=== PATIENT | male | born 1960 | race Two or more races ===

== ENCOUNTER → 2018-12-16 | Outpatient (CLI) | payer OTHER ==
[2018-12-16 12:41] LABS: Urine Bacteria NONE SEEN /hpf (None Seen); Urine Blood 1+ /uL (Negative); Urine Mucus FEW (None Seen); Urine Specific Gravity 1.022 (1.001-1.035); Urine WBC 1 /hpf (0 - 3)
[2018-12-16 13:24] LABS: Albumin 3.9 g/dL (3.4-5.0); BUN/Creatinine Ratio 11.2; Calcium 8.9 mg/dL (8.5-10.1)
[2018-12-16 13:29] LABS: Bilirubin, Total 0.6 mg/dL (0.2-1.0); Total Protein 7.6 g/dL (6.4-8.2)
== END | disposition home or self-care (01) ==
LOC: LAB 11:38
PROVIDERS: ATTEND Internal Medicine
DX: Z12.11 Encounter for screening for malignant neoplasm of colon (principal); I10 Essential (primary) hypertension; E78.5 Hyperlipidemia, unspecified
CPT/HCPCS: 36415; 80053; 80061; 81001; 83036; 84153; 84443

== ENCOUNTER → 2019-12-06 | Outpatient (CLI) | payer OTHER | END | disposition home or self-care (01) | LOC: OP 15:30 | PROVIDERS: ATTEND Physician Assistant | DX: L82.1 Other seborrheic keratosis (principal) ==

== ENCOUNTER → 2020-01-05 | Outpatient (CLI) | payer OTHER ==
[2020-01-05 10:41] LABS: BUN/Creatinine Ratio 13.6; Potassium 3.3 mmol/L (3.5-5.1)
== END | disposition home or self-care (01) ==
LOC: LAB 09:52
PROVIDERS: ATTEND Internal Medicine
DX: Z12.11 Encounter for screening for malignant neoplasm of colon (principal); E78.5 Hyperlipidemia, unspecified; I10 Essential (primary) hypertension
CPT/HCPCS: 36415; 80048

== ENCOUNTER → 2020-04-18 | Outpatient (CLI) | payer OTHER ==
[2020-04-18 11:35] LABS: Cholesterol 126 mg/dL (< 200); HDL Cholesterol 32 mg/dL (40-59); LDL Cholesterol 63 mg/dL (< 100); Triglycerides 283 mg/dL (< 150)
== END | disposition home or self-care (01) ==
LOC: LAB 09:52
PROVIDERS: ATTEND Internal Medicine
DX: Z12.11 Encounter for screening for malignant neoplasm of colon (principal); I10 Essential (primary) hypertension
CPT/HCPCS: 36415; 80061; 84153

== ENCOUNTER → 2020-11-19 | Outpatient (CLI) | payer OTHER ==
[2020-11-19 10:55] LABS: BUN/Creatinine Ratio 12.8; Potassium 4.7 mmol/L (3.5-5.1)
[2020-11-19 10:56] LABS: Albumin 3.9 g/dL (3.4-5.0); Calcium 9.1 mg/dL (8.5-10.1)
[2020-11-19 11:00] LABS: Bilirubin, Total 0.8 mg/dL (0.2-1.0); Total Protein 7.9 g/dL (6.4-8.2)
== END | disposition home or self-care (01) ==
LOC: LAB 10:19
PROVIDERS: ATTEND Internal Medicine
DX: I10 Essential (primary) hypertension (principal); E78.5 Hyperlipidemia, unspecified
CPT/HCPCS: 36415; 80053; 80061

== ENCOUNTER → 2021-02-22 | Outpatient (CLI) | payer OTHER ==
[2021-02-22 10:13] LABS: Urine Bacteria NONE SEEN /hpf (None Seen); Urine Blood 1+ /uL (Negative); Urine Mucus FEW (None Seen); Urine Specific Gravity 1.023 (1.001-1.035); Urine WBC <1 /hpf (0 - 3)
[2021-02-22 10:37] LABS: Potassium 3.8 mmol/L (3.5-5.1)
[2021-02-22 10:42] LABS: BUN/Creatinine Ratio 15.8; Magnesium 2.2 mg/dL (1.6-2.6)
== END | disposition home or self-care (01) ==
LOC: LAB 09:27
PROVIDERS: ATTEND Internal Medicine
DX: I12.9 Hypertensive chronic kidney disease with stage 1 through stage 4 chronic kidney disease, or unspecified chronic kidney disease (principal); N18.30 Chronic kidney disease, stage 3 unspecified; E78.5 Hyperlipidemia, unspecified
CPT/HCPCS: 36415; 80048; 81001; 83036; 83735; 84153; 84403

== ENCOUNTER → 2021-05-27 | Outpatient (CLI) | payer OTHER ==
[2021-05-27 12:59] LABS: Urine Bacteria NONE SEEN /hpf (None Seen); Urine Blood TRACE /uL (Negative); Urine Mucus FEW (None Seen); Urine Specific Gravity 1.024 (1.001-1.035); Urine WBC 1 /hpf (0 - 3)
[2021-05-27 13:35] LABS: Potassium 3.7 mmol/L (3.5-5.1)
[2021-05-27 13:45] LABS: Albumin 3.8 g/dL (3.4-5.0); Bilirubin, Total 0.7 mg/dL (0.2-1.0); CRP High Sensitivity 0.31 mg/dL (< 0.3); Calcium 9.1 mg/dL (8.5-10.1); Total Protein 7.4 g/dL (6.4-8.2); Uric Acid 6.5 mg/dL (3.5-7.2)
== END | disposition home or self-care (01) ==
LOC: LAB 12:07
PROVIDERS: ATTEND Internal Medicine
DX: R31.9 Hematuria, unspecified (principal); R10.9 Unspecified abdominal pain
CPT/HCPCS: 36415; 80053; 81001; 84550; 85652; 86141

== ENCOUNTER 2021-07-04 09:40 | Day surgery (SDC) | payer OTHER ==
[~2021-07-04] VITALS: Ht 175.3 cm; Wt 117.9 kg
[~2021-07-04 09:40] MED LIST: ATO40T PO; BACL20TA PO; CLOP75TA70 PO; LIDO5DIS21 TOP; LOSA-39 PO; NITR1SPR TL; OMEG1360 PO; PANT1INJ3 PO; TRIA75TA55 PO
[2021-07-04] MEDS ORDERED: LIDOCAINE VISCOUS 2% 15ML UD ONE (10:41)
[2021-07-04] MEDS ORDERED: diphenhdrAMINE HCL 50 MG/1 ML VL ONE (10:42)
[2021-07-04] MEDS: MIDAZOLAM HCL 5 MG/ML-1ML VIAL ONE ×3 (11:03→11:15)
[2021-07-04] MEDS: fentaNYL CITRATE 100 MCG/2 ML VL ONE ×2 (11:03→11:06)
[2021-07-04] MEDS ORDERED: SIMETHICONE 40 MG/0.6 ML ORAL DROP ONE (11:22)
[2021-07-04 12:35] VITALS: BP 128/70
== END 2021-07-04 12:50 | disposition home or self-care (01) ==
LOC: GI 09:40
PROVIDERS: ATTEND Internal Medicine Gastroenterology
DX: Z12.11 Encounter for screening for malignant neoplasm of colon (principal); D12.0 Benign neoplasm of cecum; K21.00 Gastro-esophageal reflux disease with esophagitis, without bleeding; K57.30 Diverticulosis of large intestine without perforation or abscess without bleeding; K64.8 Other hemorrhoids; I10 Essential (primary) hypertension; Z98.890 Other specified postprocedural states; Z20.822 Contact with and (suspected) exposure to COVID-19; Z79.899 Other long term (current) drug therapy; Z95.5 Presence of coronary angioplasty implant and graft
CPT/HCPCS: 43235; 45380; 88305; J1200; J2250; J3010; U0003; 99152

== ENCOUNTER → 2021-07-30 | Outpatient (CLI) | payer OTHER ==
[2021-07-30 11:41] LABS: INR 1.06 (0.9-1.15); Partial Thromboplastin Time 27.7 sec (23.6-33.0)
[2021-07-30 12:04] LABS: BUN/Creatinine Ratio 13.2; Calcium 9.1 mg/dL (8.5-10.1); Potassium 3.6 mmol/L (3.5-5.1)
== END | disposition home or self-care (01) ==
LOC: LAB 11:09
PROVIDERS: ATTEND Surgery
DX: R22.2 Localized swelling, mass and lump, trunk (principal)
CPT/HCPCS: 36415; 80048; 85610; 85730

== ENCOUNTER → 2022-05-13 | Outpatient (CLI) | payer OTHER ==
[2022-05-13 10:20] LABS: Basophils # (auto) 0 10 ^3/uL (0-0.2); Basophils % (auto) 0.1 % (0.0-2.0); Eosinophils # (auto) 0.1 10 ^3/uL (0-0.8); Eosinophils % (auto) 1.6 % (0.0-7.0); Hematocrit 44.5 % (41.0-53.0); Hemoglobin 14.6 g/dL (13.5-17.5); Lymphocytes # (auto) 1.6 10 ^3/uL (0.4-5.4); Lymphocytes % (auto) 25.5 % (10.0-50.0); Mean Corpuscular Hgb Conc. 32.9 g/dL (32.0-36.0); Monocytes # (auto) 0.4 10 ^3/uL (0-1.3); Monocytes % (auto) 6.7 % (0.0-12.0); Neutrophils # (auto) 4.2 10 ^3/uL (1.6-8.6); Neutrophils % (auto) 66.1 % (37.0-80.0); Nucleated Red Blood Cells % 0.2 %; Red Blood Cells 5.24 10^6/uL (4.5-5.90); Red Cell Distribution Width 14.4 % (11.8-14.3); White Blood Cell 6.4 10^3/uL (4.4-10.8)
[2022-05-13 10:39] LABS: Potassium 3.6 mmol/L (3.5-5.1)
[2022-05-13 10:49] LABS: Albumin 3.7 g/dL (3.4-5.0); BUN/Creatinine Ratio 12.9; Bilirubin, Total 0.5 mg/dL (0.2-1.0); Calcium 9.2 mg/dL (8.5-10.1); Total Protein 7.6 g/dL (6.4-8.2)
== END | disposition home or self-care (01) ==
LOC: LAB 09:00
PROVIDERS: ATTEND Internal Medicine
DX: Z01.818 Encounter for other preprocedural examination (principal); E78.5 Hyperlipidemia, unspecified; R73.9 Hyperglycemia, unspecified
CPT/HCPCS: 36415; 80053; 80061; 84443; 85025

== ENCOUNTER → 2023-05-11 | Outpatient (CLI) | payer OTHER ==
[~2023-05-11] MED LIST changes: -LOSA-39 PO; +LOSA100T58 PO
[2023-05-11 08:39] LABS: Basophils # (auto) 0 10 ^3/uL (0-0.2); Basophils % (auto) 0.2 % (0.0-2.0); Eosinophils # (auto) 0.1 10 ^3/uL (0-0.8); Eosinophils % (auto) 1.7 % (0.0-7.0); Hematocrit 44.4 % (41.0-53.0); Lymphocytes % (auto) 27.5 % (10.0-50.0); Mean Corpuscular Hemoglobin 29.5 pg (28.0-32.0); Mean Corpuscular Hgb Conc. 33.8 g/dL (32.0-36.0); Mean Corpuscular Volume 87.3 fL (80.0-100.0); Monocytes # (auto) 0.5 10 ^3/uL (0-1.3); Monocytes % (auto) 6.7 % (0.0-12.0); Neutrophils # (auto) 4.8 10 ^3/uL (1.6-8.6); Neutrophils % (auto) 63.9 % (37.0-80.0); Nucleated Red Blood Cells % 0.1 %; Red Blood Cells 5.08 10^6/uL (4.5-5.90); Red Cell Distribution Width 14.2 % (11.8-14.3); White Blood Cell 7.4 10^3/uL (4.4-10.8)
[2023-05-11 08:46] LABS: Urine Bacteria NONE SEEN /hpf (None Seen); Urine Blood 1+ /uL (Negative); Urine Mucus FEW (None Seen); Urine Specific Gravity 1.022 (1.001-1.035); Urine WBC <1 /hpf (0 - 3)
[2023-05-11 09:24] LABS: Potassium 4.2 mmol/L (3.5-5.1)
[2023-05-11 09:34] LABS: Albumin 3.7 g/dL (3.4-5.0); BUN/Creatinine Ratio 13.1 (10.0-20.0); Bilirubin, Total 0.6 mg/dL (0.2-1.0); Total Protein 7.1 g/dL (6.4-8.2)
== END | disposition home or self-care (01) ==
LOC: LAB 08:24
PROVIDERS: ATTEND Internal Medicine
DX: Z12.11 Encounter for screening for malignant neoplasm of colon (principal); Z00.00 Encounter for general adult medical examination without abnormal findings; I10 Essential (primary) hypertension; I25.10 Atherosclerotic heart disease of native coronary artery without angina pectoris; E78.5 Hyperlipidemia, unspecified
CPT/HCPCS: 36415; 80053; 80061; 81001; 83036; 84153; 85025

== ENCOUNTER → 2023-12-18 | Outpatient (CLI) | payer OTHER ==
[2023-12-18 09:27] LABS: Alanine Aminotransferase 48 U/L (7-40); Albumin 4.7 g/dL (3.2-4.8); Alkaline Phosphatase 92 U/L (46-116); Anion Gap 9 (5-15); Aspartate Aminotransferase 31 U/L (13-40); BUN/Creatinine Ratio 9.2 (10.0-20.0); Bilirubin, Total 0.8 mg/dL (0.2-1.0); Blood Urea Nitrogen 12 mg/dL (9-23); Calcium 9.7 mg/dL (8.5-10.1); Carbon Dioxide 27 mmol/L (20-30); Chloride 105 mmol/L (98-107); Cholesterol 92 mg/dL (< 200); Glucose 112 mg/dL (74-106); HDL Cholesterol 28 mg/dL (40-59); LDL Cholesterol 39 mg/dL (< 100); Potassium 3.8 mmol/L (3.5-5.1); Sodium 141 mmol/L (136-145); Total Protein 7.6 g/dL (5.7-8.2); Triglycerides 191 mg/dL (< 150)
== END | disposition home or self-care (01) ==
LOC: LAB 08:46
PROVIDERS: ATTEND Internal Medicine
DX: I10 Essential (primary) hypertension (principal); I25.10 Atherosclerotic heart disease of native coronary artery without angina pectoris; N52.9 Male erectile dysfunction, unspecified
CPT/HCPCS: 36415; 80053; 80061; 83036; 84403

== ENCOUNTER → 2024-02-15 | Outpatient (CLI) | payer OTHER ==
[~2024-02-15] MED LIST changes: -ATO40T PO; +ATOR-507 PO; +LOSA-535 PO; -LOSA100T58 PO
== END | disposition home or self-care (01) ==
LOC: XYW 15:28
PROVIDERS: ATTEND Student in an Organized Health Care Education/Training Program
DX: I25.9 Chronic ischemic heart disease, unspecified (principal)
CPT/HCPCS: 93306

== ENCOUNTER → 2024-06-09 | Outpatient (CLI) | payer OTHER ==
[2024-06-09 15:12] LABS: Carbon Dioxide 28 mmol/L (20-30); Chloride 110 mmol/L (98-107)
[2024-06-09 15:13] LABS: Anion Gap 3 (5-15); Potassium 4.2 mmol/L (3.5-5.1); Sodium 141 mmol/L (136-145)
[2024-06-09 15:14] LABS: Calcium 9.8 mg/dL (8.7-10.4)
[2024-06-09 15:18] LABS: Glucose 89 mg/dL (74-106)
[2024-06-09 15:19] LABS: BUN/Creatinine Ratio 10.5 (10.0-20.0); Blood Urea Nitrogen 15 mg/dL (9-23)
== END | disposition home or self-care (01) ==
LOC: LAB 13:36
PROVIDERS: ATTEND Pathology Anatomic Pathology & Clinical Pathology
DX: I10 Essential (primary) hypertension (principal); E78.5 Hyperlipidemia, unspecified
CPT/HCPCS: 36415; 80048

== ENCOUNTER → 2025-02-13 | Outpatient (CLI) | payer MEDICARE, BC ==
[2025-02-13 08:59] LABS: Urine Bacteria None Seen /hpf (None Seen)
[2025-02-13 09:33] LABS: Basophils # (auto) 0 10 ^3/uL (0-0.2); Basophils % (auto) 0.2 % (0.0-2.0); Eosinophils # (auto) 0.2 10 ^3/uL (0-0.8); Eosinophils % (auto) 3.6 % (0.0-7.0); Hematocrit 43.5 % (41.0-53.0); Hemoglobin 14.8 g/dL (13.5-17.5); Lymphocytes % (auto) 29.9 % (10.0-50.0); Mean Corpuscular Hemoglobin 29.7 pg (28.0-32.0); Mean Corpuscular Hgb Conc. 33.9 g/dL (32.0-36.0); Mean Corpuscular Volume 87.5 fL (80.0-100.0); Monocytes # (auto) 0.6 10 ^3/uL (0-1.3); Monocytes % (auto) 8.5 % (0.0-12.0); Neutrophils # (auto) 3.8 10 ^3/uL (1.6-8.6); Neutrophils % (auto) 57.8 % (37.0-80.0); Nucleated Red Blood Cells % 0.1 %; Platelet Count (auto) 261 10^3/uL (140-450); Red Blood Cells 4.97 10^6/uL (4.5-5.90); Red Cell Distribution Width 14.1 % (11.8-14.3); White Blood Cell 6.6 10^3/uL (4.4-10.8)
[2025-02-13 10:01] LABS: Alanine Aminotransferase 28 U/L (7-40); Alkaline Phosphatase 62 U/L (46-116); Anion Gap 8 (5-15); Aspartate Aminotransferase 25 U/L (13-40); BUN/Creatinine Ratio 13.5 (10.0-20.0); Blood Urea Nitrogen 20 mg/dL (9-23); Calcium 10.4 mg/dL (8.7-10.4); Carbon Dioxide 26 mmol/L (20-31); Cholesterol 118 mg/dL (< 200); Glucose 105 mg/dL (74-106); HDL Cholesterol 41 mg/dL (40-59); LDL Cholesterol 61 mg/dL (< 100); Potassium 4.2 mmol/L (3.5-5.1); Sodium 143 mmol/L (136-145); Total Protein 7.7 g/dL (5.7-8.2); Triglycerides 128 mg/dL (< 150)
[2025-02-13 10:02] LABS: Bilirubin, Total 0.6 mg/dL (0.2-1.0)
[2025-02-13 10:04] LABS: Urine Blood TRACE /uL (Negative); Urine Clarity Clear (Clear); Urine Color Yellow (Yellow); Urine Mucus FEW (None Seen); Urine Protein, UAD Negative (Negative); Urine Squamous Epithelial Cell FEW /hpf (<5); Urine Urobilinogen Normal (Negative); Urine WBC 2 /HPF (0-3); Urine pH 5.5 (5.0-9.0)
[2025-02-13 10:10] LABS: Chloride 109 mmol/L (98-107)
== END | disposition home or self-care (01) ==
LOC: LAB 08:37
PROVIDERS: ATTEND Internal Medicine
DX: Z12.5 Encounter for screening for malignant neoplasm of prostate (principal); Z12.11 Encounter for screening for malignant neoplasm of colon; I12.9 Hypertensive chronic kidney disease with stage 1 through stage 4 chronic kidney disease, or unspecified chronic kidney disease; N18.31 Chronic kidney disease, stage 3a; E78.5 Hyperlipidemia, unspecified; Z79.899 Other long term (current) drug therapy
CPT/HCPCS: 36415; 80053; 80061; 81001; 83036; 84153; 85025

== ENCOUNTER 2025-04-14 08:27 | Day surgery (SDC) | payer MEDICARE, BC ==
[2025-04-13 10:34] LABS: Urine Bacteria None Seen /hpf (None Seen)
[2025-04-13 10:53] LABS: Basophils # (auto) 0 10 ^3/uL (0-0.2); Basophils % (auto) 0.2 % (0.0-2.0); Eosinophils # (auto) 0.2 10 ^3/uL (0-0.8); Eosinophils % (auto) 2.7 % (0.0-7.0); Hematocrit 43.3 % (41.0-53.0); Hemoglobin 14.6 g/dL (13.5-17.5); Lymphocytes # (auto) 1.9 10 ^3/uL (0.4-5.4); Mean Corpuscular Hemoglobin 29.3 pg (28.0-32.0); Mean Corpuscular Hgb Conc. 33.7 g/dL (32.0-36.0); Mean Corpuscular Volume 86.8 fL (80.0-100.0); Monocytes # (auto) 0.5 10 ^3/uL (0-1.3); Monocytes % (auto) 7.2 % (0.0-12.0); Neutrophils % (auto) 60.9 % (37.0-80.0); Platelet Count (auto) 230 10^3/uL (140-450); Red Blood Cells 4.98 10^6/uL (4.5-5.90); Red Cell Distribution Width 13.8 % (11.8-14.3); White Blood Cell 6.5 10^3/uL (4.4-10.8)
[2025-04-13 11:06] LABS: Urine Blood TRACE /uL (Negative); Urine Clarity Clear (Clear); Urine Color Yellow (Yellow); Urine Mucus FEW (None Seen); Urine Protein, UAD Negative (Negative); Urine Specific Gravity 1.027 (1.001-1.035); Urine Squamous Epithelial Cell None Seen /hpf (<5); Urine Urobilinogen Normal (Negative); Urine WBC 1 /HPF (0-3)
[2025-04-13 11:11] LABS: INR 1.06 (0.9-1.15); Partial Thromboplastin Time 27.7 SEC (24.5-34.5); Prothrombin Time 11.2 sec (9.3-11.8)
[2025-04-13 11:23] LABS: Alanine Aminotransferase 29 U/L (7-40); Albumin 4.6 g/dL (3.2-4.8); Alkaline Phosphatase 51 U/L (46-116); Anion Gap 7 (5-15); Aspartate Aminotransferase 23 U/L (<34); BUN/Creatinine Ratio 13.1 (10.0-20.0); Blood Urea Nitrogen 19 mg/dL (9-23); Calcium 10.1 mg/dL (8.7-10.4); Carbon Dioxide 29 mmol/L (20-31); Glucose 99 mg/dL (74-106); Potassium 4.4 mmol/L (3.5-5.1); Sodium 145 mmol/L (136-145); Total Protein 7.2 g/dL (5.7-8.2)
[2025-04-13 11:24] LABS: Bilirubin, Total 0.6 mg/dL (0.2-1.0)
[2025-04-13 11:25] LABS: Chloride 109 mmol/L (98-107)
[~2025-04-14] VITALS: Ht 175.3 cm; Wt 117.9 kg
[~2025-04-14 08:27] MED LIST changes: +ASPI1TAB20 PO; -BACL20TA PO; -CLOP75TA70 PO; +EZET10TA22 PO; +FENO145T27 OR; -LIDO5DIS21 TOP; +NIFE1TAB31 PO; -NITR1SPR TL; -OMEG1360 PO; -TRIA75TA55 PO
[2025-04-14] MEDS ORDERED: MIDAZOLAM HCL 2MG/2ML 2ml VIAL (1mg/ml) ONE (10:19)
[2025-04-14] MEDS ORDERED: KETAMINE 50mg/ML 1ml syringe ONE (10:19)
[2025-04-14] MEDS: LIDOCAINE VISCOUS 2% 15ML UD ONE (10:19)
[2025-04-14] MEDS ORDERED: fentaNYL CITRATE 100 MCG/2 ML VL ONE (10:19)
[2025-04-14] MEDS ORDERED: DexAMETHasone SOD PHOS 10MG/1ML VIAL INJ ONE (10:20)
[2025-04-14] MEDS ORDERED: PROPOFOL 10 MG/ML 20 ML IV ONE (10:26)
[2025-04-14 10:55] VITALS: PULSE 50; RESP 9; TEMP 98.2; O2SAT 100
--- NOTE | 2025-04-14 11:02 | DVHOP2 ---
Operative Report DATE OF OPERATION: 04/14/25 PROCEDURE: Upper Endoscopy with biopsy. PREOPERATIVE INDICATION: The patient is a 64 -year-old male undergoing endoscopy for chronic GERD POSTOPERATIVE DIAGNOSES: 1. 2 cm sliding-type hiatal hernia with grade B chronic linear erosive esophagitis with some inflammatory tissue at the GE junction from which biopsies were obtained 2. Mild gastroduodenitis otherwise normal examination up to the 2nd and 3rd part of the duodenum PROCEDURE PERFORMED BY: Yontahan Carrera GI NURSE: Nicole SCOPE: Olympus videoendoscope. ASA CLASS: 2. PREOPERATIVE MEDICATIONS: Dr. Airam Mckeon PROCEDURE IN DETAIL: After obtaining an informed consent, the patient was placed on left lateral decubitus position. The patient was then sedated with the above medications. A bite block was placed between his teeth. The endoscope was then passed through the oropharynx, into the esophagus, and through the stomach and pylorus up to the second and third part of the duodenum. The endoscope was then withdrawn. Second and 3rd part of the duodenum were normal. Duodenal bulb and postbulbar area showed mild duodenitis with hyperemia. Duodenal biopsies were obtained. The pre-pyloric area and antrum showed minimal gastritis. Gastric biopsies were obtained. On retroflexion the fundus cardia and angularis were normal. The endoscope was then withdrawn into the distal esophagus. Patient had a 2 cm sliding-type hiatal hernia with grade B linear erosive esophagitis and some inflammatory tissue at the GE junction from which biopsies were obtained. The remaining distal and proximal esophagus and oropharynx were unremarkable. The patient tolerated the procedure well without difficulty. COMPLICATIONS : None SPECIMENS: Duodenal Biopsies Gastric biopsies GE junction biopsies DISPOSITION: Stable D/C to home PLAN: 1. Await for biopsy result 2. Will place pt on Protonix 40 mg bid 3. Lifestyle and dietary modifications for GERD 4. Outpatient follow up with me in 4-6 weeks to review results and discuss further management 5. Resume soft mechanical diet advance as tolerated YONATHAN CARRERA MD Apr 14, 2025 11:02
--- NOTE | 2025-04-14 11:05 | DVHOP2 ---
Operative Report DATE OF OPERATION: 04/14/25 PROCEDURE: Colonoscopy with cold biopsy. PREOPERATIVE INDICATION: The patient is a 64 -year-old male undergoing colonoscopy for surveillance with personal history of tubular adenomas POSTOPERATIVE DIAGNOSES: 1. Moderate sigmoid diverticular disease 2. There was a 1-2 mm benign-appearing sigmoid polyp that appeared hyperplastic and was removed by cold biopsy forceps 3. 1+ internal hemorrhoids otherwise completely normal colonoscopy examination up to the cecum and terminal ileum PROCEDURE PERFORMED BY: Yonathan Carrera M.D. SCOPE: Olympus videocolonoscope. ASA CLASS: 3 PREOPERATIVE MEDICATIONS: Dr. Airam Mckeon PROCEDURE IN DETAIL: After obtaining an informed consent, the patient was placed on left lateral decubitus position. He was then sedated with the above medications. A rectal examination was performed that was normal. The colonoscope was then passed through the anus into the rectosigmoid and through the descending, transverse, and ascending colon up to the cecum with visualization of the appendiceal orifice, base of the cecum and the ileocecal valve. The colonoscope was then withdrawn. The distal 5 cm of the terminal ileum were normal No masses or colitis were seen. There was moderate left colon diverticular disease most prominent in the sigmoid with sigmoid muscular hypertrophy There was a 2 mm benign-appearing sigmoid polyp that appeared hyperplastic. This was removed by cold biopsy forceps. On retroflexion and straight on view patient had 1+ internal hemorrhoids The patient tolerated the procedure well without difficulty. WITHDRAWAL TIME: 6 minutes QUALITY OF THE PREP: Katy Bowel Prep score: 9. COMPLICATIONS : None SPECIMENS: Sigmoid colon polyp DISPOSITION: Stable D/C to home PLAN: 1. Repeat colonoscopy base on biopsy result in five years 2. Resume GI soft diet advance as tolerated 3. Increase fluid and fiber intake 4. Outpatient follow up with me in 4-6 weeks to review results and discuss further management YONATHAN CARRERA MD Apr 14, 2025 11:05
[2025-04-14 11:50] VITALS: BP 134/76; PULSE 51; RESP 11; O2SAT 97
== END 2025-04-14 11:50 | disposition home or self-care (01) ==
LOC: GI 08:27
PROVIDERS: ATTEND Internal Medicine Gastroenterology
DX: K57.30 Diverticulosis of large intestine without perforation or abscess without bleeding (principal); K21.9 Gastro-esophageal reflux disease without esophagitis; K63.5 Polyp of colon; K29.90 Gastroduodenitis, unspecified, without bleeding; K22.10 Ulcer of esophagus without bleeding; K44.9 Diaphragmatic hernia without obstruction or gangrene; K64.8 Other hemorrhoids
CPT/HCPCS: 36415; 43239; 45380; 80053; 81001; 85025; 85610; 85730; 88305; 88342; J1100; J2250; J2704; J3010; J7030

== ENCOUNTER 2025-05-30 08:55 | Outpatient (CLI) | payer MEDICARE, BC ==
[2025-05-30 10:19] LABS: Anion Gap 10 (5-15); Carbon Dioxide 27 mmol/L (20-31); Potassium 4.5 mmol/L (3.5-5.1); Sodium 144 mmol/L (136-145)
[2025-05-30 10:20] LABS: Calcium 9.7 mg/dL (8.7-10.4)
[2025-05-30 10:25] LABS: BUN/Creatinine Ratio 12.6 (10.0-20.0); Blood Urea Nitrogen 20 mg/dL (9-23); Glucose 99 mg/dL (74-106)
[2025-05-30 10:27] LABS: Chloride 107 mmol/L (98-107)
== END 2025-05-30 17:00 | disposition home or self-care (01) ==
LOC: LAB 08:55
PROVIDERS: ATTEND Internal Medicine
DX: N18.31 Chronic kidney disease, stage 3a (principal)
CPT/HCPCS: 36415; 80048